=== PATIENT | female | born 1970 | race Caucasian/White ===

== ENCOUNTER 2018-05-12 12:53 | Emergency (ER) | payer SELFPAY ==
[~2018-05-12] VITALS: Ht 157.5 cm; Wt 65.9 kg
[~2018-05-12 12:53] MED LIST: BACTRIM DS 8001 TAB PO; CEPHALEXIN250 M1 PO; CEPHALEXIN500 M1 PO; LORTAB 5/500 501 TAB PO; NO HOME MEDICATIONS; NORCO 325 MG-51 TAB PO
[2018-05-12 13:02] VITALS: TEMP 97.4
[2018-05-12 13:27] LABS: BASO # 0.1 (0.0-0.2); BASO % 0.4 % (0.0-2.0); EOS % 0.3 % (0-4.0); GRAN # 9.8 (1.4-6.5); GRAN % 73.2 % (42.2-75.2); HEMATOCRIT 51.6 % (37.0-47.0); LYMPH # 2.8 (1.2-3.4); LYMPH % 20.6 % (20.0-51.0); MEAN CELL VOLUME 88 fl (80.0-100.0); MEAN CORPUSCULAR HEMOGLOBIN 31 pg (27.0-31.0); MEAN CORPUSCULAR HGB CONC 35 g/dl (33.0-37.0); MEAN PLATELET VOLUME 8.5 fl (7.4-10.4); MONO # 0.7 (0.1-0.6); MONO % 5.1 % (1.7-9.3); PLATELET COUNT 423 K/mm3 (130-400); RED BLOOD COUNT 5.86 M/mm3 (4.10-5.30); REDCELL DISTRIBUTION WIDTH-CV 12.1 % (11.5-14.5)
[2018-05-12 13:31] LABS: ALBUMIN 4.4 gm/dL (3.5-5.0); BILIRUBIN,TOTAL 0.6 mg/dL (0.0-1.0); CALCIUM 9.8 mg/dL (8.4-10.2); CREATININE, serum 0.49 mg/dL (0.52-1.25); POTASSIUM 4.6 mmol/L (3.4-5.0)
[2018-05-12 14:37] LABS: COLLECTION METHOD CLEAN CATCH
[2018-05-12 14:43] LABS: MUCOUS Present /lpf; PH 5 (5-8); URINE APPEARANCE Hazy; URINE BACTERIA None Seen /hpf; URINE BILIRUBIN Negative (NEGATIVE); URINE BLOOD 3+ (NEGATIVE); URINE COLOR Yellow; URINE GLUCOSE 3+ (NEGATIVE); URINE KETONE 2+ (NEGATIVE); URINE LEUKOCYTE ESTERASE Negative (NEGATIVE); URINE NITRATE Negative (NEGATIVE); URINE PROTEIN(semi-quant) 1+ (NEGATIVE); URINE UROBILINOGEN Negative (NEGATIVE)
[2018-05-12 16:00] VITALS: BP 173/96
[2018-05-12] MEDS ORDERED: ZOFRAN 4MG T4 MG/TAB PO (16:05)
[2018-05-12] MEDS ORDERED: PHENERGAN25 MG RC (16:05)
[2018-05-12 16:49] VITALS: PULSE 107
== END 2018-05-12 16:57 | disposition home or self-care (01) ==
LOC: COL.ER 12:53
PROVIDERS: Emergency Medicine
DX: R19.7 Diarrhea, unspecified (principal); E86.9 Volume depletion, unspecified; R11.2 Nausea with vomiting, unspecified; I10 Essential (primary) hypertension; E11.9 Type 2 diabetes mellitus without complications
CPT/HCPCS: J2060; J2405; J2550; J7030

== ENCOUNTER → 2019-12-06 | Outpatient (CLI) | payer SELFPAY ==
[~2019-12-06] MED LIST changes: +PHENERGAN25 MG RC; +ZOFRAN 4MG T4 MG/TAB PO
== END ==
LOC: ZCOL.LAB 13:13 → EDSTATUS 15:13
DX: B34.9 Viral infection, unspecified (principal); Z20.828 Contact with and (suspected) exposure to other viral communicable diseases